=== PATIENT | female | born 1960 | race Caucasian/White ===

== ENCOUNTER → 2016-08-26 | Outpatient (REF) | payer OTHER | LOC: M LAB REF 16:20 | PROVIDERS: ATTEND Physician Assistant | DX: N39.0 Urinary tract infection, site not specified (principal) ==

== ENCOUNTER → 2016-08-29 | Outpatient (CLI) | payer BC ==
--- NOTE | 2016-08-29 16:52 | REP ---
Urinary tract sonography: History: Hematuria. Findings: Scanning through the urine filled bladder demonstrates smooth bladder levi. No bladder mass lesion is seen. Emptying ureteral jets are confirmed from both ureters on color Doppler interrogation of the bladder lumen. Pre void bladder volume is calculated at 234 ml. Postvoid bladder volume is 91 ml. Renal cortical echogenicity pattern is somewhat increased bilaterally. Question dehydration versus medical renal disease. No hydronephrosis is seen on either side. No cyst or mass is observed. No calculus is seen. Question vascular calcification. Right kidney measures 9.6 x 5.3 x 4.2 cm. Left renal dimensions are 10.4 x 4.4 x 4.9 cm. Impression: Increased renal cortical echogenicity bilaterally. Question chronic medical renal disease versus dehydration. No hydronephrosis is seen. Small postvoid bladder residual. Otherwise negative. Signed by Kike Alonzo MD 08/29/2016 04:59 P
== END ==
LOC: M RAD 15:22
PROVIDERS: ATTEND Physician Assistant
DX: R31.9 Hematuria, unspecified (principal)

== ENCOUNTER → 2016-09-03 | Outpatient (REF) | payer BC | LOC: M SMT 17:02 | PROVIDERS: ATTEND Nurse Practitioner Women's Health | DX: R31.9 Hematuria, unspecified (principal) ==

== ENCOUNTER → 2016-10-09 | Outpatient (REF) | payer BC | LOC: M LAB REF 11:57 | PROVIDERS: ATTEND Advanced Practice Midwife | DX: Z01.411 Encounter for gynecological examination (general) (routine) with abnormal findings (principal); Z11.51 Encounter for screening for human papillomavirus (HPV); N95.2 Postmenopausal atrophic vaginitis ==

== ENCOUNTER → 2019-01-22 | Outpatient (CLI) | payer BC, OTHER, SELFPAY ==
--- NOTE | 2019-01-22 11:49 | REP ---
Left wrist three views: I suspect a nondisplaced compression type fracture transversely in the distal radial metaphysis. This should be correlated with clinical point tenderness. CT might be considered for confirmation if felt clinically indicated. Mineralization and joint spaces are otherwise unremarkable. No calcifications or foreign bodies. Impression: Nondisplaced fracture of the distal radius. Electronically Signed by Myles Vargas MD 01/22/2019 11:41 A
== END ==
LOC: M WUC 10:57
PROVIDERS: ATTEND Physician Assistant
DX: S52.592A Other fractures of lower end of left radius, initial encounter for closed fracture (principal); X58.XXXA Exposure to other specified factors, initial encounter; Y92.89 Other specified places as the place of occurrence of the external cause

== ENCOUNTER → 2023-11-05 | Outpatient (REF) | payer OTHER | LOC: M LAB REF 16:14 | PROVIDERS: ATTEND Nurse Practitioner Family | DX: R30.0 Dysuria (principal) ==

== ENCOUNTER → 2024-11-24 | Outpatient (CLI) | payer MEDICARE ==
[2024-11-24 06:58] LABS: HEMATOCRIT 42.3 % (36.0-47.0); HEMOGLOBIN 14.1 g/dl (12.0-15.5); MEAN CORPUSCULAR HEMOGLOBIN 30.1 pg (27.0-33.0); MEAN CORPUSCULAR HGB CONC 33.3 g/dl (32.0-36.5); MEAN CORPUSCULAR VOLUME 90.4 fl (80.0-96.0); PLATELET COUNT, AUTOMATED 244 10^3/uL (150-450); RED BLOOD COUNT 4.68 10^6/uL (4.00-5.40); WHITE BLOOD COUNT 5.2 10^3/uL (4.0-10.0)
[2024-11-24 07:25] LABS: ALBUMIN 3.5 G/DL (3.2-5.2); ALKALINE PHOSPHATASE 68 U/L (35-104); ALT/SGPT 27 U/L (7.0-40); AST/SGOT 15 U/L (<34); BILIRUBIN,TOTAL 0.7 MG/DL (0.3-1.2); BLOOD UREA NITROGEN 16 MG/DL (9-23); CALCIUM LEVEL 9.2 MG/DL (8.3-10.6); CARBON DIOXIDE LEVEL 31 MMOL/L (20-31); CHLORIDE LEVEL 106 MMOL/L (98-107); CHOLESTEROL LEVEL 193 MG/DL (<200); CHOLESTEROL RISK RATIO 3.56 (<5); CREATININE FOR GFR 0.66 MG/DL (0.55-1.30); GLOMERULAR FILTRATION RATE > 90.0 (>45); GLUCOSE, FASTING 114 MG/DL (74-106); HDL CHOLESTEROL 54.1 MG/DL (>40); LDL CHOLESTEROL 125.9 MG/DL (<100); NON-HDL-C 138.9 MG/DL; POTASSIUM SERUM 4.6 MMOL/L (3.5-5.1); SODIUM LEVEL 143 MMOL/L (136-145); TOTAL PROTEIN 6.3 G/DL (5.7-8.2); TRIGLYCERIDES LEVEL 65 MG/DL (<150)
[2024-11-24 07:28] LABS: FREE T4 1.12 NG/DL (0.89-1.76); THYROID STIMULATING HORMONE 0.042 uIU/ML (0.55-4.78)
[2024-11-24 08:01] LABS: HEMOGLOBIN A1c 5.6 % (4.0-6.0)
== END ==
LOC: M LAB 06:25
PROVIDERS: ATTEND Family Medicine
DX: Z13.6 Encounter for screening for cardiovascular disorders (principal); Z13.220 Encounter for screening for lipoid disorders; Z13.228 Encounter for screening for other metabolic disorders

== ENCOUNTER 2025-02-02 09:29 | Day surgery (SDC) | payer MEDICARE ==
[~2025-02-02] VITALS: Ht 149.9 cm; Wt 46.5 kg
[~2025-02-02 09:29] MED LIST: B COCAP4 PO; CALC500T68 PO; D-101000 PO; LIDOCAINE 2% 100 MG/5 ML SDV (FOR ANES.) As Ordered ONE
[2025-02-02 10:29] VITALS: TEMP 96.6
[2025-02-02 10:45] VITALS: BP 142/68; O2SAT 97
== END 2025-02-02 10:55 | disposition home or self-care (01) ==
LOC: M OPP 09:29
PROVIDERS: ATTEND Surgery
DX: Z12.11 Encounter for screening for malignant neoplasm of colon (principal); K57.30 Diverticulosis of large intestine without perforation or abscess without bleeding; K64.8 Other hemorrhoids; Z79.899 Other long term (current) drug therapy